=== PATIENT | male | born 1965 | race Caucasian/White ===

== ENCOUNTER 2018-09-11 10:26 | Inpatient (IN) | payer MEDICAID ==
[~2018-09-11] VITALS: Ht 162.6 cm; Wt 74.8 kg
[2018-09-11 11:22] LABS: BASOPHILS % 1.8 % (0.0-2.0); EOSINOPHILS % 3.7 % (0.0-5.0); HEMATOCRIT. 36.1 % (42.0-52.0); HEMOGLOBIN. 11.9 g/dL (14.0-18.0); LYMPHOCYTES % 27.7 % (20.0-50.0); MEAN CORPUSCULAR HEMOGLOBIN 32.1 pg (28.0-32.0); MEAN CORPUSCULAR VOLUME 97.6 fL (80.0-94.0); MEAN PLATELET VOLUME 9.3 fl (7.4-10.4); MONOCYTES % 6.9 % (2.0-8.0); NEUTROPHILS % 59.9 % (40.0-76.0); PLATELET 201 x1000/uL (130-400); RED CELL DISTRIBUTION WIDTH 15.2 % (11.6-14.6)
[2018-09-11 11:30] LABS: INR 1.1; PARTIAL THROMBOPLASTIN TIME 27.8 sec (23.4-31.0); PROTHROMBIN TIME 10.9 sec (9.1-11.1)
[2018-09-11 11:32] LABS: CHLORIDE 102 mEq/L (98-107)
[2018-09-11] MEDS ORDERED: CLONIDINE 0.2MG TABLET PO ONE (13:45)
[2018-09-11] MEDS ORDERED: HYDRALAZINE 20MG/ML VIAL IV NR (19:01)
[2018-09-12 03:36] VITALS: BP 168/89
[2018-09-12 04:46] VITALS: BP 157/72
[2018-09-12] MEDS ORDERED: CLONIDINE 0.1MG TABLET PO PRN (06:00)
[2018-09-12] MEDS ORDERED: ACETAMINOPHEN 325MG TABLET PO PRN (06:00)
[2018-09-12 08:00] VITALS: BP 126/67
[2018-09-12] MEDS: AMLODIPINE 10MG TABLET PO SCH (09:35)
[2018-09-12] MEDS ORDERED: LIDOCAINE HCL 1% 20ML VIAL (Pyxis) INJ ONE (09:55)
[2018-09-12] MEDS ORDERED: GELATIN SPONGE,ABSORBABLE 12-7MM SPONGE ONE (11:15)
[2018-09-12 11:55] LABS: EOSINOPHILS % 3.4 % (0.0-5.0); HEMATOCRIT. 33.3 % (42.0-52.0); HEMOGLOBIN. 11.2 g/dL (14.0-18.0); LYMPHOCYTES % 24.6 % (20.0-50.0); MEAN CORPUSCULAR HEMOGLOBIN 32.8 pg (28.0-32.0); MEAN CORPUSCULAR VOLUME 97.9 fL (80.0-94.0); MEAN PLATELET VOLUME 9.5 fl (7.4-10.4); MONOCYTES % 6.4 % (2.0-8.0); NEUTROPHILS % 64.6 % (40.0-76.0); PLATELET 192 x1000/uL (130-400); RED CELL DISTRIBUTION WIDTH 15.5 % (11.6-14.6)
[2018-09-12 12:15] VITALS: BP 137/67
[2018-09-12 12:30] LABS: PHOSPHORUS 7.9 mg/dL (2.5-4.9)
[2018-09-12 16:00] VITALS: BP 112/56
[2018-09-12] MEDS: CALCIUM ACETATE 667MG CAPSULE PO SCH (17:10)
[2018-09-12 20:00] VITALS: BP 130/63
[2018-09-13] VITALS: BP 141/66
[2018-09-13 05:26] VITALS: BP 128/73
[2018-09-13 08:00] VITALS: BP 161/85
[2018-09-13] MEDS: CALCIUM ACETATE 667MG CAPSULE PO SCH (09:24)
[2018-09-13] MEDS: AMLODIPINE 10MG TABLET PO SCH (09:24)
[2018-09-13 09:45] VITALS: BP 144/70
[2018-09-13 10:15] VITALS: BP 130/65
== END 2018-09-13 10:55 | disposition home or self-care (01) | DRG 466 ==
LOC: ER 10:26 → 6WST 11:47 → EDBEDREQSVC 18:51 → ENRESERV 19:14 → CANRESERV 19:46 → ENRESERV 19:46 → EDBEDREQSVC 22:20 → ENRESERV 09-12 01:58
PROVIDERS: ADMIT Internal Medicine Nephrology; ATTEND Internal Medicine Nephrology
PROC: 0JPTXXZ Removal of Tunneled Vascular Access Device from Trunk Subcutaneous Tissue and Fascia, External Approach (ICD-10-PCS; principal; 2018-09-12)
PROC: 5A1D70Z Performance of Urinary Filtration, Intermittent, Less than 6 Hours Per Day (ICD-10-PCS; 2018-09-12)
PROC: 02PYX3Z Removal of Infusion Device from Great Vessel, External Approach (ICD-10-PCS; 2018-09-12)
DX: T82.41XA Breakdown (mechanical) of vascular dialysis catheter, initial encounter (principal); I12.0 Hypertensive chronic kidney disease with stage 5 chronic kidney disease or end stage renal disease; E11.22 Type 2 diabetes mellitus with diabetic chronic kidney disease; E11.51 Type 2 diabetes mellitus with diabetic peripheral angiopathy without gangrene; E44.0 Moderate protein-calorie malnutrition; I16.0 Hypertensive urgency; N18.6 End stage renal disease; D64.9 Anemia, unspecified; E78.5 Hyperlipidemia, unspecified; N25.81 Secondary hyperparathyroidism of renal origin; Y84.1 Kidney dialysis as the cause of abnormal reaction of the patient, or of later complication, without mention of misadventure at the time of the procedure; E78.00 Pure hypercholesterolemia, unspecified; Z99.2 Dependence on renal dialysis; Z89.422 Acquired absence of other left toe(s); Z82.49 Family history of ischemic heart disease and other diseases of the circulatory system; Z83.3 Family history of diabetes mellitus; Y92.89 Other specified places as the place of occurrence of the external cause; Z68.28 Body mass index [BMI] 28.0-28.9, adult
CPT/HCPCS: 36415; 36430; 36589; 71045; 80048; 82962; 83735; 84100; 86850; 86900; 93005; 99285; J0360; J3490; J7030

== ENCOUNTER 2018-12-26 21:12 | Inpatient (IN) | payer MEDICAID ==
[~2018-12-26] VITALS: Ht 162.6 cm; Wt 75.7 kg
[2018-12-27] MEDS ORDERED: LABETALOL 5MG/ML SYR 20 MG/4 ML SYRINGE IV ONE (02:15)
[2018-12-27 02:23] LABS: BASOPHILS % 1.2 % (0.0-2.0); EOSINOPHILS % 1.4 % (0.0-5.0); HEMATOCRIT. 33.5 % (42.0-52.0); HEMOGLOBIN. 11.3 g/dL (14.0-18.0); LYMPHOCYTES % 24.4 % (20.0-50.0); MEAN CORPUSCULAR HEMOGLOBIN 32.9 pg (28.0-32.0); MEAN CORPUSCULAR VOLUME 97.6 fL (80.0-94.0); MEAN PLATELET VOLUME 8.6 fl (7.4-10.4); PLATELET 197 x1000/uL (130-400); RED BLOOD CELL COUNT 3.43 mill/uL (4.7-6.1)
[2018-12-27 02:27] LABS: CHLORIDE 97 mEq/L (98-107)
[2018-12-27] MEDS ORDERED: DEXTROSE 50% WATER 50ML SYRINGE IV PRN ×2 (10:00)
[2018-12-27] MEDS ORDERED: ACETAMINOPHEN 325MG TABLET PO PRN (10:00)
[2018-12-27] MEDS ORDERED: ENOXAPARIN 40MG/0.4ML SYR SUBCUT SCH (10:00)
[2018-12-27] MEDS ORDERED: GUAIFENESIN 200MG/10ML SUGAR FREE UDC PO PRN (10:00)
[2018-12-27] MEDS ORDERED: DOCUSATE SODIUM 100MG CAPSULE PO PRN (10:00)
[2018-12-27] MEDS ORDERED: MAGNESIUM/ALUMINUM HYDROXIDE/SIMETHICONE 30ML UDC PO PRN (10:00)
[2018-12-27] MEDS ORDERED: CLONIDINE 0.1MG TABLET PO PRN (10:00)
[2018-12-27] MEDS ORDERED: OMEPRAZOLE 20MG CAPSULE EXTENDED RELEASE PO SCH (10:00)
[2018-12-27] MEDS ORDERED: IPRATROPIUM/ALBUTEROL 0.5-3(2.5)MG/3ML NEB INH PRN (10:00)
[2018-12-27] MEDS ORDERED: LOSARTAN POTASSIUM 100 MG TABLET PO NR (13:00)
[2018-12-27] MEDS: HYDRALAZINE HCL 25MG TABLET PO SCH ×2 (16:28→21:34)
[2018-12-27] MEDS: ENOXAPARIN 30MG/0.3ML SYR SUBCUT SCH (16:34)
[2018-12-27 20:00] VITALS: BP 153/67
[2018-12-27] MEDS: INSULIN LISPRO 100 UNITS/ML SUBCUT SCH (21:00)
[2018-12-27] MEDS: BLOOD SUGAR DIAGNOSTIC STRIP TEST SCH (21:26)
[2018-12-27] MEDS: AMLODIPINE 5MG TABLET PO SCH (21:34)
[2018-12-27] MEDS ORDERED: AMLO10TA4 PO (22:22)
[2018-12-27] MEDS ORDERED: LOPHC2 PO (22:25)
[2018-12-27] MEDS ORDERED: LOSA100T14 PO (22:26)
[2018-12-28] VITALS: BP 122/58
[2018-12-28 04:00] VITALS: BP 148/67
[2018-12-28] MEDS: HYDRALAZINE HCL 25MG TABLET PO SCH ×3 (05:40→21:35)
[2018-12-28 06:52] LABS: BASOPHILS % 0.9 % (0.0-2.0); EOSINOPHILS % 2.1 % (0.0-5.0); HEMATOCRIT. 32.4 % (42.0-52.0); LYMPHOCYTES % 31.2 % (20.0-50.0); MEAN CORPUSCULAR HEMOGLOBIN 32.8 pg (28.0-32.0); MEAN CORPUSCULAR VOLUME 96.8 fL (80.0-94.0); MEAN PLATELET VOLUME 8.7 fl (7.4-10.4); MONOCYTES % 7.8 % (2.0-8.0); PLATELET 185 x1000/uL (130-400); RED BLOOD CELL COUNT 3.35 mill/uL (4.7-6.1); RED CELL DISTRIBUTION WIDTH 13.5 % (11.6-14.6)
[2018-12-28 07:00] LABS: T4 FREE 1.13 ng/dL (0.76-1.46)
[2018-12-28] MEDS: BLOOD SUGAR DIAGNOSTIC STRIP TEST SCH ×4 (07:40→20:16)
[2018-12-28 08:00] VITALS: BP 128/70
[2018-12-28] MEDS: INSULIN LISPRO 100 UNITS/ML SUBCUT SCH ×4 (08:10→20:16)
[2018-12-28] MEDS: LOSARTAN POTASSIUM 100 MG TABLET PO SCH (09:00)
[2018-12-28] MEDS: AMLODIPINE 5MG TABLET PO SCH ×2 (09:19→20:20)
[2018-12-28 12:00] VITALS: BP 161/80
[2018-12-28] MEDS: FAMOTIDINE 20MG TABLET PO SCH (14:13)
[2018-12-28] MEDS: ENOXAPARIN 30MG/0.3ML SYR SUBCUT SCH (14:13)
[2018-12-28] MEDS: CALCIUM ACETATE 667MG CAPSULE PO SCH ×2 (14:14→17:21)
[2018-12-28 20:00] VITALS: BP 112/65
[2018-12-28] MEDS ORDERED: IOHEXOL-350 100 ML BOTTLE ONE (22:44)
[2018-12-29] VITALS: BP 114/58
[2018-12-29 04:00] VITALS: BP 115/61
[2018-12-29] MEDS: BLOOD SUGAR DIAGNOSTIC STRIP TEST SCH ×2 (05:15→12:26)
[2018-12-29] MEDS: HYDRALAZINE HCL 25MG TABLET PO SCH ×2 (05:16→13:48)
[2018-12-29 06:50] LABS: HEMATOCRIT. 32.2 % (42.0-52.0); HEMOGLOBIN. 10.8 g/dL (14.0-18.0); LYMPHOCYTES % 28.1 % (20.0-50.0); MEAN CORPUSCULAR HEMOGLOBIN 32.7 pg (28.0-32.0); MEAN CORPUSCULAR VOLUME 97.5 fL (80.0-94.0); MEAN PLATELET VOLUME 8.6 fl (7.4-10.4); MONOCYTES % 7.4 % (2.0-8.0); NEUTROPHILS % 61.5 % (40.0-76.0); PLATELET 191 x1000/uL (130-400); RED CELL DISTRIBUTION WIDTH 13.5 % (11.6-14.6)
[2018-12-29] MEDS: INSULIN LISPRO 100 UNITS/ML SUBCUT SCH ×2 (07:42→12:26)
[2018-12-29 08:00] VITALS: BP 125/67
[2018-12-29] MEDS: AMLODIPINE 5MG TABLET PO SCH (08:54)
[2018-12-29] MEDS: CALCIUM ACETATE 667MG CAPSULE PO SCH ×2 (08:54→13:48)
[2018-12-29] MEDS: LOSARTAN POTASSIUM 100 MG TABLET PO SCH (08:54)
[2018-12-29] MEDS: FAMOTIDINE 20MG TABLET PO SCH (08:55)
[2018-12-29 12:00] VITALS: BP 148/61
[2018-12-29] MEDS: ENOXAPARIN 30MG/0.3ML SYR SUBCUT SCH (12:29)
[2018-12-29 15:33] VITALS: BP 148/61
[2018-12-29 16:00] VITALS: BP 128/76
== END 2018-12-29 16:40 | disposition home or self-care (01) | DRG 133 ==
LOC: ER 21:12 → EDBEDREQ 12-27 03:10 → EDBEDREQTM 12-27 03:10 → ENRESERV 12-27 17:36 → 7WST 12-27 20:19
PROVIDERS: ADMIT Family Medicine Adult Medicine; ATTEND Internal Medicine Nephrology
PROC: 5A1D70Z Performance of Urinary Filtration, Intermittent, Less than 6 Hours Per Day (ICD-10-PCS; principal; 2018-12-28)
PROC: 5A1D70Z Performance of Urinary Filtration, Intermittent, Less than 6 Hours Per Day (ICD-10-PCS; 2018-12-29)
DX: J96.00 Acute respiratory failure, unspecified whether with hypoxia or hypercapnia (principal); I13.2 Hypertensive heart and chronic kidney disease with heart failure and with stage 5 chronic kidney disease, or end stage renal disease; E44.0 Moderate protein-calorie malnutrition; E11.22 Type 2 diabetes mellitus with diabetic chronic kidney disease; E11.51 Type 2 diabetes mellitus with diabetic peripheral angiopathy without gangrene; I50.9 Heart failure, unspecified; E11.319 Type 2 diabetes mellitus with unspecified diabetic retinopathy without macular edema; N18.6 End stage renal disease; E83.39 Other disorders of phosphorus metabolism; D63.1 Anemia in chronic kidney disease; E78.00 Pure hypercholesterolemia, unspecified; N25.81 Secondary hyperparathyroidism of renal origin; E78.5 Hyperlipidemia, unspecified; Z82.49 Family history of ischemic heart disease and other diseases of the circulatory system; Z83.3 Family history of diabetes mellitus; Z87.01 Personal history of pneumonia (recurrent); Z89.412 Acquired absence of left great toe; Z89.422 Acquired absence of other left toe(s); Z99.2 Dependence on renal dialysis; E11.36 Type 2 diabetes mellitus with diabetic cataract; Z79.4 Long term (current) use of insulin; Z68.28 Body mass index [BMI] 28.0-28.9, adult
CPT/HCPCS: 36415; 71045; 71275; 80048; 80061; 82962; 83036; 83735; 83880; 84100; 84439; 84443; 84484; 93005; 93306; 96372; 99285; J1650; J3490; Q9967

== ENCOUNTER 2019-12-10 14:57 | Inpatient (IN) | payer MEDICAID, OTHER ==
[~2019-12-10] VITALS: Ht 162.6 cm; Wt 64.9 kg
[~2019-12-10 14:57] MED LIST: AMLO10TA4 PO; LOPHC2 PO; LOSA100T32 PO
[2019-12-10] MEDS ORDERED: ACETAMINOPHEN 500MG TABLET PO NR (15:30)
[2019-12-10] MEDS ORDERED: IBUPROFEN 800MG TABLET PO NR (15:30)
[2019-12-10 19:23] LABS: EOSINOPHILS % 0.6 % (0.0-5.0); HEMOGLOBIN. 12.5 g/dL (14.0-18.0); LYMPHOCYTES % 8.3 % (20.0-50.0); MEAN CORPUSCULAR HEMOGLOBIN 31.8 pg (28.0-32.0); MEAN CORPUSCULAR VOLUME 96.5 fL (80.0-94.0); MEAN PLATELET VOLUME 9.2 fl (7.4-10.4); MONOCYTES % 4.2 % (2.0-8.0); NEUTROPHILS % 85.9 % (40.0-76.0); PLATELET 191 x1000/uL (130-400); RED BLOOD CELL COUNT 3.94 mill/uL (4.7-6.1); RED CELL DISTRIBUTION WIDTH 15.1 % (11.6-14.6)
[2019-12-10 19:29] LABS: CHLORIDE 103 mEq/L (98-107); INR 1.1; PROTHROMBIN TIME 11.6 sec (9.6-11.0)
[2019-12-10 20:57] LABS: CLARITY URINE CLEAR (CLEAR); COLOR URINE YELLOW (YELLOW); KETONES URINE NEGATIVE (NEGATIVE); LEUKOCYTE ESTERASE URINE NEGATIVE (NEGATIVE); NITRITE URINE NEGATIVE (NEGATIVE); OCCULT BLOOD URINE 1+ (NEGATIVE); PH URINE 7.5 (4.5-8.0); PROTEIN URINE 4+ (NEGATIVE); SPECIFIC GRAVITY URINE 1.016 (1.005-1.030); UROBILINOGEN URINE 0.2 E.U./dL (0.2-1.0)
[2019-12-10] MEDS ORDERED: MORPHINE SULFATE 4 MG/ML CPJ (NOT FOR IM USE) IV NR (21:15)
[2019-12-11 09:15] VITALS: BP 177/76
[2019-12-11 09:30] VITALS: BP 177/76
[2019-12-11] MEDS ORDERED: ONDANSETRON HCL 4MG/2ML INJ IV PRN (10:00)
[2019-12-11] MEDS: NIFEDIPINE XL 60MG TAB PO SCH ×2 (10:00→14:21)
[2019-12-11] MEDS ORDERED: DEXTROSE 50% WATER 50ML SYRINGE IV PRN (10:00)
[2019-12-11] MEDS ORDERED: ACETAMINOPHEN 325MG TABLET PO PRN (10:00)
[2019-12-11] MEDS ORDERED: MORPHINE SULFATE 2 MG/ML CPJ (NOT FOR IM USE) IV PRN (10:00)
[2019-12-11] MEDS ORDERED: NIFE20CA PO (10:09)
[2019-12-11 11:23] VITALS: BP 195/88
[2019-12-11] MEDS: BLOOD SUGAR DIAGNOSTIC STRIP TEST SCH ×3 (11:56→21:29)
[2019-12-11] MEDS: INSULIN LISPRO 100 UNITS/ML SUBCUT SCH ×3 (11:56→21:00)
[2019-12-11] MEDS: ENOXAPARIN 30MG/0.3ML SYR SUBCUT SCH (12:13)
[2019-12-11 14:53] VITALS: BP 170/83
[2019-12-11] MEDS: LOSARTAN POTASSIUM 100 MG TABLET PO SCH (15:47)
[2019-12-11 18:57] VITALS: BP 159/68
[2019-12-11] MEDS: CLONIDINE 0.1MG TABLET PO PRN (19:12)
[2019-12-11 20:00] VITALS: BP 137/63
[2019-12-12] VITALS: BP 150/71
[2019-12-12 04:00] VITALS: BP 116/55
[2019-12-12] MEDS: BLOOD SUGAR DIAGNOSTIC STRIP TEST SCH ×4 (06:39→21:44)
[2019-12-12] MEDS: HYDROCODONE/ACETAMINOPHEN 5/325MG TABLET PO PRN ×2 (06:40→17:15)
[2019-12-12 07:01] LABS: BASOPHILS % 1.2 % (0.0-2.0); EOSINOPHILS % 4.4 % (0.0-5.0); HEMATOCRIT. 37.2 % (42.0-52.0); HEMOGLOBIN. 12.5 g/dL (14.0-18.0); LYMPHOCYTES % 18.7 % (20.0-50.0); MEAN CORPUSCULAR HEMOGLOBIN 32.3 pg (28.0-32.0); MEAN CORPUSCULAR VOLUME 95.8 fL (80.0-94.0); MEAN PLATELET VOLUME 9.4 fl (7.4-10.4); MONOCYTES % 6.8 % (2.0-8.0); NEUTROPHILS % 68.9 % (40.0-76.0); PLATELET 173 x1000/uL (130-400); RED BLOOD CELL COUNT 3.88 mill/uL (4.7-6.1); RED CELL DISTRIBUTION WIDTH 14.9 % (11.6-14.6)
[2019-12-12 07:36] LABS: PHOSPHORUS 6.1 mg/dL (2.5-4.9)
[2019-12-12] MEDS: INSULIN LISPRO 100 UNITS/ML SUBCUT SCH ×4 (07:50→21:00)
[2019-12-12 08:00] VITALS: BP 125/62
[2019-12-12] MEDS: NIFEDIPINE XL 60MG TAB PO SCH (09:17)
[2019-12-12] MEDS: LOSARTAN POTASSIUM 100 MG TABLET PO SCH (09:17)
[2019-12-12] MEDS: ENOXAPARIN 30MG/0.3ML SYR SUBCUT SCH (09:18)
[2019-12-12 12:00] VITALS: BP 152/62
[2019-12-12 16:00] VITALS: BP 136/63
[2019-12-12] MEDS ORDERED: HYDR-4009 MT (17:39)
[2019-12-12] MEDS ORDERED: CALCIUM ACETATE 667MG CAPSULE PO SCH (18:00)
[2019-12-12 20:00] VITALS: BP 130/60
[2019-12-13] VITALS (8 sets, daily range): BP systolic 136–171; BP diastolic 62–81
[2019-12-13] MEDS: HYDROCODONE/ACETAMINOPHEN 5/325MG TABLET PO PRN ×2 (00:30→08:09)
[2019-12-13] MEDS: BLOOD SUGAR DIAGNOSTIC STRIP TEST SCH ×4 (06:31→20:44)
[2019-12-13 06:41] LABS: BASOPHILS % 1.1 % (0.0-2.0); EOSINOPHILS % 5.7 % (0.0-5.0); HEMATOCRIT. 37.3 % (42.0-52.0); HEMOGLOBIN. 12.4 g/dL (14.0-18.0); LYMPHOCYTES % 19.7 % (20.0-50.0); MEAN CORPUSCULAR VOLUME 96.2 fL (80.0-94.0); MEAN PLATELET VOLUME 9.1 fl (7.4-10.4); MONOCYTES % 8.9 % (2.0-8.0); NEUTROPHILS % 64.6 % (40.0-76.0); PLATELET 174 x1000/uL (130-400); RED BLOOD CELL COUNT 3.88 mill/uL (4.7-6.1); RED CELL DISTRIBUTION WIDTH 14.6 % (11.6-14.6)
[2019-12-13 07:41] LABS: PHOSPHORUS 8.7 mg/dL (2.5-4.9)
[2019-12-13] MEDS: INSULIN LISPRO 100 UNITS/ML SUBCUT SCH ×4 (07:47→21:00)
[2019-12-13] MEDS: CALCIUM ACETATE 667 MG TABLET PO SCH ×3 (08:10→17:19)
[2019-12-13] MEDS: LOSARTAN POTASSIUM 100 MG TABLET PO SCH ×2 (08:11→17:18)
[2019-12-13] MEDS: NIFEDIPINE XL 60MG TAB PO SCH ×2 (08:11→17:18)
[2019-12-13] MEDS: ENOXAPARIN 30MG/0.3ML SYR SUBCUT SCH ×2 (08:11→17:18)
[2019-12-13] MEDS: CLONIDINE 0.1MG TABLET PO PRN (11:28)
[2019-12-14 00:50] VITALS: BP 175/77
[2019-12-14] MEDS: CLONIDINE 0.1MG TABLET PO PRN (00:56)
[2019-12-14 04:00] VITALS: BP 156/58
[2019-12-14] MEDS: BLOOD SUGAR DIAGNOSTIC STRIP TEST SCH (06:29)
[2019-12-14] MEDS: INSULIN LISPRO 100 UNITS/ML SUBCUT SCH (07:50)
[2019-12-14 08:00] VITALS: BP 143/66
[2019-12-14] MEDS: CALCIUM ACETATE 667 MG TABLET PO SCH ×2 (09:13→13:11)
[2019-12-14 12:00] VITALS: BP 128/65
[2019-12-14 16:00] VITALS: BP 126/56
[2019-12-14 16:34] VITALS: BP 128/65
== END 2019-12-14 17:45 | disposition home or self-care (01) | DRG 341 ==
LOC: ER 14:57 → 6WST 20:36 → ENRESERV 12-11 07:42
PROVIDERS: ADMIT Internal Medicine; ATTEND Internal Medicine
PROC: 5A1D70Z Performance of Urinary Filtration, Intermittent, Less than 6 Hours Per Day (ICD-10-PCS; principal; 2019-12-11)
PROC: 5A1D70Z Performance of Urinary Filtration, Intermittent, Less than 6 Hours Per Day (ICD-10-PCS; 2019-12-12)
PROC: 5A1D70Z Performance of Urinary Filtration, Intermittent, Less than 6 Hours Per Day (ICD-10-PCS; 2019-12-14)
DX: S32.512A Fracture of superior rim of left pubis, initial encounter for closed fracture (principal); E11.22 Type 2 diabetes mellitus with diabetic chronic kidney disease; E11.51 Type 2 diabetes mellitus with diabetic peripheral angiopathy without gangrene; I12.0 Hypertensive chronic kidney disease with stage 5 chronic kidney disease or end stage renal disease; D63.8 Anemia in other chronic diseases classified elsewhere; N18.6 End stage renal disease; E78.00 Pure hypercholesterolemia, unspecified; W11.XXXA Fall on and from ladder, initial encounter; E78.5 Hyperlipidemia, unspecified; N25.81 Secondary hyperparathyroidism of renal origin; Z99.2 Dependence on renal dialysis; Z82.49 Family history of ischemic heart disease and other diseases of the circulatory system; Y93.89 Activity, other specified; Y92.89 Other specified places as the place of occurrence of the external cause; Y99.8 Other external cause status; Z79.899 Other long term (current) drug therapy; Z89.422 Acquired absence of other left toe(s)
CPT/HCPCS: 36415; 71045; 72192; 73060; 73090; 73502; 73560; 80048; 80053; 81003; 82962; 83735; 83880; 84100; 85025; 93005; 96372; 96374; 97116; 97162; 97166; 97530; 97535; 99285; J1650; J2270